=== PATIENT | male | born 1965 | race Caucasian/White ===

== ENCOUNTER 2017-01-26 16:19 | Emergency (ER) | payer SELFPAY ==
[2017-01-26 16:29] VITALS: BP 136/75; PULSE 70; RESP 16; TEMP 97.6; O2SAT 98
--- NOTE | 2017-01-26 16:32 | C.PDOC ---
History Of Present Illness 51 yr old male presents to the ER for evaluation of new onset of mass on the top of right eyelid for the past 4 days. Patient also reports of redness to the eyelid. Denies fever, vision changes or headache. NEW [place] MASS TOP OF R EYELID X 4 DAYS. +REDNESS. NO VISION CHANGES, OTHER ASSOC SX EAM NAD +R EYE +EXT STYE TOP MIDDLE OF LID. MIN LOCAL ERYTHEMA. Time Seen by Provider: 01/26/17 16:29 Chief Complaint (Nursing): Eye Problem History Per: Patient History/Exam Limitations: no limitations Onset/Duration Of Symptoms: Days (4), Sudden Onset Current Symptoms Are (Timing): Still Present Past Medical History Reviewed: Historical Data, Nursing Documentation, Vital Signs Vital Signs: Last Vital Signs Temp 97.6 F 01/26/17 16:27 Pulse 70 01/26/17 16:27 Resp 16 01/26/17 16:27 BP 136/75 01/26/17 16:27 Pulse Ox 98 01/26/17 16:33 - Medical History PMH: HTN Family History: States: Hypertension - Social History Hx Tobacco Use: No Hx Alcohol Use: No Hx Substance Use: No - Immunization History Hx Tetanus Toxoid Vaccination: No Hx Influenza Vaccination: Yes Hx Pneumococcal Vaccination: No Review Of Systems Except As Marked, All Systems Reviewed And Found Negative. Constitutional: Negative for: Fever Eyes: Positive for: Redness (Right eyelid), Other ((+) Mass on the right eyelid) . Negative for: Vision Change Neurological: Negative for: Headache Physical Exam - Physical Exam Appears: Non-toxic, No Acute Distress Skin: Normal Color, Warm, Dry, No Rash Head: Atraumatic, Normacephalic Eye(s): right: PERRL, EOMI, Other (Ext stye, top mid lid. Minimal local erythema ), left: Normal Inspection Neurological/Psych: Oriented x3, Normal Speech, Normal Motor ED Course And Treatment O2 Sat by Pulse Oximetry: 98 (RA) Pulse Ox Interpretation: Normal Disposition Counseled Patient/Family Regarding: Diagnosis, Need For Followup, Rx Given - Disposition Referrals: [facility] [Outside] [facility] [Outside] Disposition: HOME/ ROUTINE Disposition Time: 16:33 Condition: GOOD Prescriptions: Bacitracin [Bacitracin Opht OINT] 1 applic OD Q4 #1 tube Instructions: Nimo (ED) Forms: [facility] (Armenian) - Clinical Impression Clinical Impression: Stye - Scribe Statement The provider has reviewed the documentation as recorded by the Arielaibe Aline Gardiner Provider Attestation: All medical record entries made by the Arielaibe were at my direction and personally dictated by me. I have reviewed the chart and agree that the record accurately reflects my personal performance of the history, physical exam, medical decision making, and the department course for this patient. I have also personally directed, reviewed, and agree with the discharge instructions and disposition.
== END 2017-01-26 16:40 | disposition home or self-care (01) ==
LOC: C.ER 16:19
DX: H00.011 Hordeolum externum right upper eyelid (principal)